=== PATIENT | male | born 1950 | race Caucasian/White ===

== ENCOUNTER 2019-07-25 08:40 | Day surgery (SDC) | payer MEDICARE ==
[2019-07-20 13:19] VITALS: BMI 22.4
--- NOTE | 2019-07-24 16:29 | HP ---
HISTORY AND PHYSICAL CHIEF COMPLAINT: Residual carcinoma of the right ear. HISTORY OF PRESENT ILLNESS: This patient is a 68-year-old male who was seen in my office for evaluation of a lesion of the right ear. The patient states that he had recently seen a thermal cutter helper in [facility] for suspicious lesion of the right ear. 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 The patient has had multiple skin cancers, mostly basal cell carcinomas, removed from various parts of his face and his body. Because of his history of previous cancer, it was recommended that he undergo a wedge excision of the residual lesion with marking of the borders under general anesthesia. PAST MEDICAL HISTORY: Reveals he has no allergies. MEDICATIONS: He is not currently on any medications. FAMILY HISTORY: Of asthma, diabetes mellitus or hypertension. REVIEW OF SYSTEMS: Cardiovascular is negative. RESPIRATORY: Negative. Gastrointestinal and the remainder of the review of systems is essentially unremarkable. PHYSICAL EXAM: This patient is a 68-year-old male who was alert and cooperative. HEENT examination: Patient is normocephalic. Tympanic membranes are normal. Middle ear spaces are free of any fluid or infection. Examination of the posterior aspect of the right ear reveals that the patient has a depressed wound from a previous excision located on the superior helix. This area encompasses approximately 1 cm. There does not appear to be any crusting or bleeding at this time, and the area is nontender. Pupils are equal, round, reactive to light and accommodation. Extraocular movements are within normal limits. Intranasal examination reveals moderate to severe septal deviation with compensatory hypertrophy of inferior turbinates and a moderate amount of clear mucus on the mucous membranes and draining down the posterior pharynx. Examination of the oropharynx, cranial nerves 2-12, palpation of the neck, and the remainder of the head and neck exam are all within normal limits. Chest/cardiovascular: Both lung jung are clear to percussion and auscultation. The patient is in regular sinus rhythm. S1, S2 are present without evidence of any murmurs, S3s or S4. Peripheral pulses are bilaterally symmetrical. ABDOMEN: There is no evidence of any masses, megaly, or tenderness. ABDOMEN: Soft. SKIN is unremarkable. MUSCULOSKELETAL and NEUROLOGICAL all within normal limits. Rectal examination: Exam is deferred at this time because the patient has this done on a regular basis at his family physician's office. The remainder of the physical exam is essentially unremarkable. 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 PLAN: The patient is scheduled undergo a wedge excision of residual carcinoma of the right superior helix under general anesthesia. Attention RNs in the pre-surgical area: If the pharmacy department sends any pre- surgical prophylactic antibiotics to the pre-surgical area for this patient, that order should be cancelled and the medication should be returned to the pharmacy department. Please make sure that the patient's account is credited appropriately. I have ordered for this patient to receive 3 grams of Kefzol IV, once an intravenous line has been established. I have also ordered for this patient to receive 1000 mg of Ofirmev IV once an intravenous line has been established. I have discussed the risks, benefits and alternative therapies for the above-mentioned procedure and for both sedation/analgesia as well as necessary blood product administration, if indicated, as they pertain to this patient. The patient has indicated his or her understanding and acceptance of the risks and procedures discussed. MMVIKTORL / PETEYN: [id number] /
[~2019-07-25 08:40] MED LIST: DEXAMETHASONE SOD PHOSPHATE 10 MG/ML 1 ML VIAL IV ONE; HYDROmorphone 0.5 MG/0.5 ML SYRINGE IVP PRN; LACTATED RINGERS 1,000 ML IV SCH; MIDAZOLAM 2 MG/2 ML VIAL IV PRN; ONDANSETRON 4 MG/2 ML VIAL IVP ONE; Pre Op ABX Message 1 EACH MISC MISCELLANE ONE
[2019-07-25] MEDS ORDERED: ACETAMINOPHEN IV (For NPO) 1,000 MG in EMPTY BAG 1 BAG IVPB ONE (09:45)
[2019-07-25] MEDS ORDERED: ceFAZolin 3 GM in SODIUM CHLORIDE 0.9% 100 ML IVPB ONE (09:45)
[2019-07-25] MEDS ORDERED: MIDAZOLAM 2 MG/2 ML VIAL ONE (09:50)
[2019-07-25] MEDS ORDERED: PHENYLEPHRINE-0.9% NACL SYG 1 MG/10 ML SYRINGE ONE (09:50)
[2019-07-25] MEDS ORDERED: ePHEDrine SULFATE/0.9% NACL/PF 50 MG/5 ML SYRINGE IV ONE (09:50)
[2019-07-25] MEDS ORDERED: SUCCINYLCHOLINE CHLORIDE 100 MG/5 ML SYR IV ONE (09:50)
[2019-07-25] MEDS ORDERED: fentaNYL (PF) 50 MCG/ML 2 ML AMP ONE (09:50)
[2019-07-25] MEDS ORDERED: PROPOFOL 10 MG/ML 20 ML VIAL IV ONE (09:50)
[2019-07-25] MEDS ORDERED: LIDOCAINE 1% INJ 10MG/ML (20 ML MDV) ONE (09:50)
[2019-07-25] MEDS ORDERED: BACITRACIN OINT 1 EACH PACKET TOPICAL ONE (11:43)
[2019-07-25] MEDS ORDERED: LACTATED RINGERS 1,000 ML IV ONE (11:48)
[2019-07-25 12:07] VITALS: TEMP 97.1
[2019-07-25 14:16] VITALS: BP 117/75; PULSE 88; RESP 16
--- NOTE | 2019-07-25 20:01 | OP ---
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 ANESTHESIA: General. OPERATIVE PROCEDURE: Wedge excision of residual carcinoma of the superior helix of the right ear with complex reconstruction. SURGEON: Dr. Schuster. COMPLICATIONS: None. ESTIMATED BLOOD LOSS: Less than 25 mL. TOTAL OPERATING TIME: Approximately 2 hours. OPERATIVE PROCEDURE DESCRIPTION: The patient was placed on the operating table in supine position. After uneventful induction and endotracheal intubation, satisfactory general anesthesia was obtained. Next the patient's right ear was prepped and draped in the usual and customary fashion. The lesion was then identified as a 1 cm lesion located on the right superior helix posteriorly. Therefore, using a Scrapblog marking pen, the proposed wedge excision was outlined with attention towards allowing generous borders for this lesion which would later be tagged. In addition to this, because of the size of the excision, provision was made for multiple W plasties for the complex repair, and these too were outlined. Next, using a #11 stab blade, initially the wedge excision was carried out in the usual and customary fashion using the #11 stab blade to go through and through; that is to say, skin to skin, including the cartilage. The entire specimen was delivered to be sent to Pathology for permanent sectioning. The specimen was labeled with a white suture inferiorly, a black suture to olivia the superior margin, a purple suture to olivia the medial margin, and a blue suture was used to olivia the lateral margin. The specimen was sent in formalin for permanent sectioning. Hemostasis was carried out carefully using the Bovie on a low setting. Next, because of the size of the excision, the previously outlined W plasties were subsequently carried out, again using a #11 stab blade to make the W plasties by cutting through skin to skin in the previously outlined areas. By doing the W plasties, these allowed the cartilage of the ear to relax back to a natural position without excessive tension. Without the W plasties, this patient would end up with a so- called cupped ear. Next, attention was addressed toward the complex closure. This was done in multiple layers, beginning with the cartilage, which was joined initially in the area of the W plasties using 5-0 rapid-absorbing Vicryl suture in interrupted buried fashion. The closure of the W plasties was started in the most medial aspect of the incisions. Having joined the cartilage, next attention was directed toward the anterior skin, and this was closed using 4-0 rapid-absorbing Vicryl in interrupted fashion to close the skin over the W plasties. Next the main wedge excision was closed by beginning at the inferior margin to close the cartilage, again using 5-0 rapid-absorbing Vicryl suture in interrupted fashion and gradually working towards the superior helix with the 5-0 rapid-absorbing Vicryl suture in interrupted fashion. Care was taken to join the two edges of the superior helix in the appropriate fashion. Next, the layer of skin on the anterior surface of the ear was closed using 4-0 rapid-absorbing Vicryl in interrupted fashion, beginning inferiorly and working towards the superior helix. Again care was taken to make sure that the edges of the superior helix approximated nicely so as to avoid notching. Following this, the skin on the posterior aspect of the ear was closed, initially beginning with closure of the W plasty skin incisions using 4-0 rapid- absorbing Vicryl in interrupted fashion, and subsequently the main wedge excision edges of skin were closed using 4-0 rapid-absorbing Vicryl in interrupted fashion beginning inferiorly and working superiorly towards the rim. Care was taken to make sure that the rim lined up nicely. At this point, the procedure was terminated. No local anesthetic was used. Estimated blood loss was less than 25 mL. The procedure took approximately 2 hours, which is longer than the usual 45-minute procedure because of the complex closure due to the W plasties and due to the involvement of the cartilage. The patient tolerated the procedure well and was returned to the recovery room in satisfactory condition. Final pathology is pending. MMODL / IJN: [id number] /
--- NOTE | 2019-07-27 13:06 | CDI ---
Outpatient Documentation Clarification Form Date: CDS/Administrative Dietitian Name: Eula Gonsalez Phone: If an\y questions, call Chiara Beasley, [employer] at [phone]. Patient Name: Darrin Heller Admit Date: 07/25/19 Discharge Date: 07/25/19 ATTENTION: The [facility] Coding Staff appreciate your assistance in clarifying documentation. Please respond to the clarification below the line at the bottom and electronically sign. The [facility] Coding Staff will review the response and follow-up if needed. Please note: Queries are made part of the Legal Health Record. If you have any questions, please contact the [employer]. Dear Dr. Schuster, In order to code to guidelines and the most specific code, please provide the size of the W-plasty closure in centimeters. Thank you for your kind consideration. Aprox. 1.0cm __ MTDD
== END 2019-07-25 14:01 | disposition home or self-care (01) ==
LOC: OR 08:40
PROVIDERS: ATTEND Otolaryngology
DX: L57.0 Actinic keratosis (principal); Z83.3 Family history of diabetes mellitus; Z82.49 Family history of ischemic heart disease and other diseases of the circulatory system; Z82.5 Family history of asthma and other chronic lower respiratory diseases; Z79.891 Long term (current) use of opiate analgesic
CPT/HCPCS: 14060; 88305; J2250; J1100; J0690; J2405; J2001; J3010; J0131; J2370; J0330; J2704